=== PATIENT | female | born 1980 | race Caucasian/White ===

== ENCOUNTER 2017-02-13 09:06 | Emergency (ER) | payer OTHER ==
[~2017-02-13] VITALS: Ht 152.4 cm; Wt 68.5 kg
[~2017-02-13 09:06] MED LIST: MACR100C2 PO; PRENCAP10 PO; PYRI200T4 PO
[2017-02-13 09:08] VITALS: BP 139/84; PULSE 78; RESP 20; TEMP 97.7; O2SAT 100
[2017-02-13] MEDS ORDERED: ADVI200C3 (09:43)
[2017-02-13] MEDS ORDERED: LISI-585 PO (09:43)
[2017-02-13] MEDS ORDERED: BUPR100CR PO (09:43)
[2017-02-13] MEDS ORDERED: NUVAMIS VAGINAL (09:43)
[2017-02-13] MEDS ORDERED: KETOROLAC TROMETHAMINE 30 MG/ML (IVP) VIAL IV PUSH ONE (10:15)
[2017-02-13] MEDS ORDERED: ONDANSETRON HCL 4 MG/2 ML VIAL IV PUSH ONE (10:15)
[2017-02-13] MEDS ORDERED: SODIUM CHLORID 0.9% 500 ML INJ 500 ML IV ONE (10:15)
--- NOTE | 2017-02-13 10:20 | PD ---
HPI Chief Complaint: Headache Time Seen by Provider: 10:00 Travel History International Travel<30 days: No Contact w/Intl Traveler<30days: No Traveled to known affect area: No History of Present Illness HPI 36-year-old female complains of headache, nausea, numbness of right side of face , both arms, tongue. Patient has history recurrent headache. Patient denies any recent head or neck injury. Patient denies any fever chills. Patient states that she has some distortion of visualize on the right eye, wiggly lines in from the right eye. Patient states that she has mild photophobia. Patient denies any chest pain or shortness of breath. Patient denies abdominal pain. Patient denies any neck stiffness. Patient has history of viral meningitis in the past. Patient has history of hypertension, thyroid disease, depression. PFSH Past Medical History Autoimmune Disease: No Depression: Yes Cardiovascular Problems: Yes (NO MEDS) Diminished Hearing: No Genitourinary: Yes Headaches: Yes Hypertension: Yes Kidney Stones: Yes Medical other: Yes (VIRAL MENINGITIS) Musculoskeletal: Yes Neurologic: Yes (HEADACHES) Psychiatric: Yes (DEPRESSION) Respiratory: No Immunizations Current: Yes Thyroid Disease: Yes (CONTROLLED) ?: Not LMP: 02/07/17 Past Surgical History Abdominal Surgery: No Cardiac Surgery: No Section: Yes (X 2 (03, 16)) Ear Surgery: No Endocrine Surgery: No Eye Surgery: No Genitourinary Surgery: No Gynecologic Surgery: Yes () Oral Surgery: No Thoracic Surgery: No Social History Alcohol Use: Yes (SOCIALLY) Tobacco Use: No Substance Use: No Allergies-Medications (Allergen,Severity, Reaction): Coded Allergies: Codeine (Verified Allergy, Severe, rash, 02/13/17) Reported Meds & Prescriptions Reported Meds & Active Scripts Active Reported Advil Migraine (Ibuprofen) 200 Mg Cap 200 Mg Nuvaring Vaginal Insert (Etonogestrel-Ethinyl Estradiol Vaginal Insert) 0.120- 0.015 Mg/24 Hr Vagring 1 Applic VAGINAL DIRECTED Zestoretic (Lisinopril-Hctz) 10-12.5 Mg Tab 1 Tab PO DAIYL Wellbutrin SR 12 HR (Bupropion HCl) 100 Mg Tab 100 Mg PO Q12HR Review of Systems General / Constitutional: No: Fever Eyes: No: Visual changes HENT: Positive: Headaches Cardiovascular: No: Chest Pain or Discomfort Respiratory: No: Shortness of Breath Gastrointestinal: No: Abdominal Pain Genitourinary: No: Dysuria Musculoskeletal: No: Pain Skin: No Rash Neurologic: Positive: Paresthesia, No: Weakness Psychiatric: No: Depression Endocrine: No: Polydipsia Hematologic/Lymphatic: No: Easy Bruising Physical Exam Narrative GENERAL: Well-nourished, well-developed patient. SKIN: Focused skin assessment warm/dry. HEAD: Normocephalic. EYES: No scleral icterus. No injection or drainage. Pupils 3 mm equal reactive. NECK: Supple, trachea midline. No JVD or lymphadenopathy. No meningismus CARDIOVASCULAR: Regular rate and rhythm without murmurs, gallops, or rubs. RESPIRATORY: Breath sounds equal bilaterally. No accessory muscle use. GASTROINTESTINAL: Abdomen soft, non-tender, nondistended. MUSCULOSKELETAL: No cyanosis, or edema. BACK: Nontender without obvious deformity. No CVA tenderness. Neurologic exam: Patient's awake and alert oriented 3. No obvious focal neurological deficit. Data Data Last Documented VS Vital Signs Date Time Temp Pulse Resp B/P Pulse Ox O2 Delivery O2 Flow Rate FiO2 02/13/17 10:27 100 Room Air 02/13/17 09:38 20 02/13/17 09:08 97.7 78 139/84 Orders Complete Blood Count With Diff (02/13/17 10:13) Comprehensive Metabolic Panel (02/13/17 10:13) C-Reactive Protein (Crp) (02/13/17 10:13) Urinalysis - C+S If Indicated (02/13/17 10:13) Westergren Sedimentation Rate (02/13/17 10:13) Iv Access Insert/Monitor (02/13/17 10:13) Ecg Monitoring (02/13/17 10:13) Oximetry (02/13/17 10:13) Ed Urine Pregnancytest Poc (02/13/17 10:13) Ketorolac Inj (Toradol Inj) (02/13/17 10:15) Ondansetron Inj (Zofran Inj) (02/13/17 10:15) Sodium Chlorid 0.9% 500 Ml Inj (Ns 500 M (02/13/17 10:15) Mri Brain W&W/O Contrast (02/13/17 10:13) Gadodiamide Pf Inj (Omniscan Pf Inj) (02/13/17 12:04) Labs Laboratory Tests Test 02/13/17 10:19 White Blood Count 7.4 TH/MM3 Red Blood Count 4.54 MIL/MM3 Hemoglobin 13.2 GM/DL Hematocrit 38.8 % Mean Corpuscular Volume 85.4 FL Mean Corpuscular Hemoglobin 29.1 PG Mean Corpuscular Hemoglobin 34.1 % Concent Red Cell Distribution Width 12.2 % Platelet Count 308 TH/MM3 Mean Platelet Volume 7.2 FL Neutrophils (%) (Auto) 80.1 % Lymphocytes (%) (Auto) 13.1 % Monocytes (%) (Auto) 5.0 % Eosinophils (%) (Auto) 1.0 % Basophils (%) (Auto) 0.8 % Neutrophils # (Auto) 5.9 TH/MM3 Lymphocytes # (Auto) 1.0 TH/MM3 Monocytes # (Auto) 0.4 TH/MM3 Eosinophils # (Auto) 0.1 TH/MM3 Basophils # (Auto) 0.1 TH/MM3 CBC Comment DIFF FINAL Differential Comment Erythrocyte Sedimentation Rate 9 mm/hr Urine Color STRAW Urine Turbidity CLEAR Urine pH 7.0 Urine Specific Gracey 1.002 Urine Protein NEG mg/dL Urine Glucose (UA) NEG mg/dL Urine Ketones NEG mg/dL Urine Occult Blood NEG Urine Nitrite NEG Urine Bilirubin NEG Urine Urobilinogen LESS THAN 2.0 MG/DL Urine Leukocyte Esterase NEG Urine RBC LESS THAN 1 /hpf Urine WBC LESS THAN 1 /hpf Microscopic Urinalysis Comment CULT NOT INDICATED Sodium Level 141 MEQ/L Potassium Level 3.6 MEQ/L Chloride Level 105 MEQ/L Carbon Dioxide Level 30.3 MEQ/L Anion Gap 6 MEQ/L Blood Urea Nitrogen 8 MG/DL Creatinine 0.74 MG/DL Estimat Glomerular Filtration 88 ML/MIN Rate Random Glucose 89 MG/DL Calcium Level 8.8 MG/DL Total Bilirubin 0.4 MG/DL Aspartate Amino Transf 19 U/L (AST/SGOT) Alanine Aminotransferase 33 U/L (ALT/SGPT) Alkaline Phosphatase 61 U/L C-Reactive Protein LESS THAN 0.29 MG/DL Total Protein 7.4 GM/DL Albumin 3.8 GM/DL MDM Medical Decision Making Medical Screen Exam Complete: Yes Emergency Medical Condition: Yes Interpretation(s) 10:57 AM. CBC within normal limit. WBC 7.4. 80 neutrophil. Sedimentation rate 9. CMP within normal limit. UA is negative. 12 27 PM. MRI showed no acute problem. Differential Diagnosis Differential diagnosis including complex migraine, TIA, CVA, encephalitis. Narrative Course 36-year-old female with headache, visual disturbance, numbness sensation of the extremity and the tongue. Diagnosis Primary Impression: Cephalgia Qualified Code: R51 - Nonintractable episodic headache, unspecified headache type Patient Instructions: General Instructions Additional Instructions: Take medications as directed. Follow-up with neurologist. Return if persistent headache, fever, neck pain, worsening of neurologic symptom. Med/Other Pt SpecificInfo: Prescription(s) given Scripts Ondansetron Odt (Zofran Odt)4 Mg Tab4 Mg SL Q6HR PRN (Nausea/Vomiting) #10 TAB Ref 0 Prov:Jair Kc MD 02/13/17 Qeqtgainbt-Bfoombvgrwivc-Suwxbmxf (Fioricet)50-300-40 Mg Cap1-2 Cap PO Q6H PRN ( HEADACHE) #30 CAP Ref 0 Prov:Jair Kc MD 02/13/17 Disposition: 01 DISCHARGE HOME Condition: Stable Jair Kc MD Feb 13, 2017 10:20
[2017-02-13 10:27] VITALS: O2SAT 100
[2017-02-13 10:32] LABS: AUTOMATED NEUTROPHIL # 5.9 TH/MM3 (1.8-7.7); BASOPHIL # 0.1 TH/MM3 (0-0.2); BASOPHIL % 0.8 % (0.0-2.0); EOSINOPHIL # 0.1 TH/MM3 (0-0.4); HEMATOCRIT 38.8 % (35.0-46.0); HEMO FLAGS DIFF FINAL; LYMPH % 13.1 % (9.0-44.0); MEAN CELL VOLUME 85.4 FL (80.0-100.0); MEAN CORPUSCULAR HEMOGLOBIN 29.1 PG (27.0-34.0); MEAN CORPUSCULAR HGB CONC 34.1 % (32.0-36.0); NEUT % 80.1 % (16.0-70.0); PLATELET COUNT 308 TH/MM3 (150-450); RED BLOOD COUNT 4.54 MIL/MM3 (4.00-5.30); RED CELL DISTRIBUTION WIDTH 12.2 % (11.6-17.2); WHITE BLOOD COUNT 7.4 TH/MM3 (4.0-11.0)
[2017-02-13 10:42] LABS: BLOOD, URINE NEG (NEG); GLUCOSE,URINE NEG (NEG); KETONE, URINE NEG (NEG); NITRITE,URINE NEG (NEG)
[2017-02-13 10:46] LABS: URINE COLOR STRAW (YELLW/STRAW)
[2017-02-13 10:47] LABS: COMMENT (UR) CULT NOT INDICATED; CULTURE IF INDICATED CULT NOT INDICATED
[2017-02-13 10:48] LABS: ALT (GPT) 33 U/L (10-53); ANION GAP 6 MEQ/L (5-15); AST (GOT) 19 U/L (15-37); BICARBONATE 30.3 MEQ/L (21.0-32.0); BLOOD UREA NITROGEN 8 MG/DL (7-18); CHLORIDE 105 MEQ/L (98-107); GLOMERULAR FILTRATION RATE 88 ML/MIN (>89); POTASSIUM 3.6 MEQ/L (3.5-5.1); SODIUM (NA) 141 MEQ/L (136-145)
[2017-02-13 10:51] LABS: ALKALINE PHOSPHATASE 61 U/L (45-117); TOTAL BILIRUBIN ADULT 0.4 MG/DL (0.2-1.0)
[2017-02-13] MEDS ORDERED: GADODIAMIDE PF 287 MG/ML 5 ML VIAL (for RAD MRI) IV ONE (12:04)
--- NOTE | 2017-02-13 12:24 | RADRPT ---
EXAM DATE/TIME: 02/13/2017 11:35 [facility] COMPARISON: No previous studies available for comparison. INDICATIONS : Encephalitis. CONTRAST: 14 cc Omniscan (gadodiamide) IV MEDICAL HISTORY : Lupus. Cardiovascular disease Renal calculi. Fibro myalgia. SURGICAL HISTORY : section. ENCOUNTER: Initial ACUITY: 1 day PAIN SCORE: 8/10 LOCATION: Bilateral cranial frontal region. TECHNIQUE: Multiplanar, multisequence MRI of the brain was performed both prior to and following the administrat ion of paramagnetic contrast. FINDINGS: CEREBRUM: The ventricles are normal for age. No evidence of midline shift, mass lesion, hemorrhage or acute in farction. No extraaxial fluid collections are seen. The pituitary gland and suprasellar cistern are normal in configuration. WHITE MATTER: No significant signal abnormalities are seen in the white matter. POSTERIOR FOSSA: The cerebellum and brainstem are intact. The 4th ventricle is midline. The cerebellopontine angle is unremarkable. The cerebellar tonsils are normal in position. DIFFUSION IMAGING: No focal areas of restricted diffusion are seen. No evidence of acute infarction. EXTRACRANIAL: The visualized portions of the orbits and paranasal sinuses are unremarkable. POST-CONTRAST: No abnormal areas of parenchymal or dural enhancement. No evidence of blood-brain barrier breakdown. Minimal mastoid disease is evident. CONCLUSION: Normal MRI of the brain. Lumbar puncture may be of benefit to exclude encephalitis. Perfusion study could be performed to exclude vasculitis in this lupus patient. Yoseph Henning MD FACR on February 13, 2017 at 12:19 Board Certified Radiologist. This report was verified electronically.
[2017-02-13] MEDS ORDERED: ZOFR4TAB3 SL (12:35)
[2017-02-13] MEDS ORDERED: BUTA1CAP PO (12:35)
[2017-02-13 12:54] VITALS: BP 135/82
== END 2017-02-13 12:57 | disposition home or self-care (01) ==
LOC: NEPD 09:06
DX: R51 Headache (principal); I10 Essential (primary) hypertension
CPT/HCPCS: 70553; 80053; 81001; 84703; 85025; 85652; 86140; 96374; 96375; 99285; A9579; J1885; J2405; J7040